=== PATIENT | female | born 1990 ===

== ENCOUNTER 2018-09-15 14:08 | Outpatient (REF) | payer OTHER, SELFPAY ==
[2018-09-15 22:23] LABS: ALT 35 U/L (12-78); AST 18 U/L (15-37); Albumin 3.4 g/dL (3.4-5.0); Alkaline Phosphatase 106 U/L (46-116); Anion Gap 12.1 mmol/L (3-11); BUN 11 mg/dL (7-18); Bilirubin, Total 0.4 mg/dL (0.2-1.0); CO2 25.9 mmol/L (21.0-32.0); CREATININE 0.74 mg/dL (0.55-1.02); Calcium 9.7 mg/dL (8.5-10.1); Chloride 105 mmol/L (98-107); Glucose 97 mg/dL (70-100); Potassium 4.6 mmol/L (3.5-5.1); Sodium 143 mmol/L (136-145); Total Protein 6.8 g/dL (6.4-8.2)
[2018-09-15 22:37] LABS: Calculated LDL 107; Cholesterol 183 mg/dL (50-200); HDL Cholesterol 38 mg/dL (40-60); Triglyceride 192 mg/dL (30-150)
[2018-09-15 23:04] LABS: Hemoglobin A1C 5.5 % (4.5-6.2)
== END 2018-09-15 14:28 ==
LOC: NCHCN 14:08
PROVIDERS: PCP Family Medicine; Visit Provider Family Medicine
DX: E66.01 Morbid (severe) obesity due to excess calories (principal); Z00.00 Encounter for general adult medical examination without abnormal findings; Z13.1 Encounter for screening for diabetes mellitus; Z13.220 Encounter for screening for lipoid disorders
CPT/HCPCS: 80053; 80061; 83721; 83036